=== PATIENT | male | born 1980 | race African-American/Black ===

== ENCOUNTER 2017-06-15 00:25 | Observation (INO) | payer BC, OTHER ==
[2017-06-15 00:52] LABS: #Basophils 0.1 thou/uL (0.0-0.2); #Eosinphils 0.1 thou/uL (0.0-0.7); #Monocytes 0.4 thou/uL (0.11-0.59); #Neutrophils 4.3 thou/uL (1.40-6.50); %Basophils 0.8 % (0.0-1.0); %Lymphocytes 38.1 % (21.0-51.0); %Monocytes 5.5 % (0.0-10.0); %Neutrophils 54.6 % (42.0-75.0); Hemoglobin 15.2 g/dL (14.0-18.0); Mean Corpuscular Hemoglobin 31.6 pg (27.0-31.0); Mean Corpuscular Volume 92.8 fl (80.0-94.0); Mean Platelet Volume 10.1 fL (7.4-10.4); Platelet Count 165 thou/uL (130-400); RBC Distribution Width 11.3 % (11.5-14.5); Red Blood Cell (RBC) Count 4.81 mill/uL (4.70-6.10); White Blood Cell (WBC) Count 7.9 thou/uL (4.8-10.8)
[2017-06-15 01:13] LABS: ALT (SGPT) 19 U/L (8-55); AST (SGOT) 15 U/L (5-34); Albumin 4.3 g/dL (3.5-5.0); Alkaline Phosphatase 58 U/L (40-150); Anion Gap 14 mmol/L (10-20); BUN (Urea Nitrogen) 12 mg/dL (8.9-20.6); Bilirubin, Total 0.5 mg/dL (0.2-1.2); CK (CPK) 162 U/L (30-200); Calc. Creatinine Clearance 0 mL/min (70-130); Calcium 10.1 mg/dL (7.8-10.44); Carbon Dioxide 22 mmol/L (22-29); Chloride 103 mmol/L (98-107); Estimated GFR-MDRD Greater than 90; Globulin 2.7 g/dL (2.4-3.5); Glucose 113 mg/dL (70-105); Potassium 3.9 mmol/L (3.5-5.1); Sodium 135 mmol/L (136-145)
[2017-06-15 01:18] LABS: Troponin I Less than 0.010 ng/mL (< 0.028)
[2017-06-15] MEDS ORDERED: Nitroglycerin 0.4 MG TAB (25 Tab Bottle) ONE (03:43)
[2017-06-15] MEDS ORDERED: Acetaminophen 325 MG TAB PO PRN (03:56)
--- NOTE | 2017-06-15 04:30 | HP ---
CHIEF COMPLAINT: Chest pain. HISTORY OF PRESENT ILLNESS: Patient is a 37-year-old male who started having chest pain this morning while sitting in [employer]azid[employer]. Patient states that the pain was substernal and pressure-like without any radiation or any other symptoms. Patient states that he has never had this before. It improved; how ever, it returned again this evening, which prompted him to go to the emergency room. He denied any family history of any cardiac issues. PAST MEDICAL HISTORY: Significant for hypertension. PAST SURGICAL HISTORY: Left knee surgery. SOCIAL HISTORY: Patient does smoke half a pack a day. No alcohol use. REVIEW OF SYSTEMS: Please see HPI. Rest of 14-point review of system is negative. FAMILY HISTORY: Reviewed and negative and noncontributory. LABORATORY DATA: CBC: White count 7.9, H&H 15 and 44 with a platelet of 165. Sodium 135, potassium 3.9, chloride 103, bicarb 22, BUN 12, creatinine 0.9. Troponin I was less than 0.01. PHYSICAL EXAMINATION: VITAL SIGNS: Blood pressure 178/91, pulse 83, respirations 18. Patient satting 99% on room air, T-m ax was 98.5. GENERAL: Patient is awake, alert, and oriented x3. Patient is morbidly obese with a weight of 228 k ilograms. He is in no acute distress. HEENT: Pupils are equal, round, react to light and accommodation. Extraocular muscles intact. TMs are clear. No erythema in throat. NECK: No JVD, no lymphadenopathy. CARDIOVASCULAR: Regular rate and rhythm. LUNGS: Clear to auscultation bilaterally and positive bowel sounds. ABDOMEN: Soft, nontender, nondistended. EXTREMITIES: No clubbing, cyanosis, or edema. NEUROLOGIC: Cranial nerves II-XII are grossly intact. PSYCHIATRIC: Patient is cooperative and appropriate, answering questions. ASSESSMENT AND PLAN: 1. Chest pain, rule out myocardial infarction. Continue with serial EKGs and enzymes. Continue on aspirin. 2. Hypertension. Restart lisinopril. We will go ahead and add low dose beta jason as well. CODE STATUS: Patient is FULL CODE.
[2017-06-15 04:42] LABS: Troponin I Less than 0.010 ng/mL (< 0.028)
[2017-06-15 04:43] VITALS: BMI 67.4
[2017-06-15 07:26] LABS: Troponin I 0.015 ng/mL (< 0.028)
--- NOTE | 2017-06-15 08:20 | RAD ---
CHEST 2 VIEWS: Date: 06/15/17 COMPARISON: 06/09/08. FINDINGS: Normal cardiac silhouette. Lungs and pleural spaces are clear. No pneumothorax or osseous abnormaliti es. IMPRESSION: No acute cardiopulmonary process. POS: [facility]
[2017-06-15] MEDS: Enoxaparin Sodium 40 MG/0.4 ML SYRINGE SC SCH (10:57)
[2017-06-15] MEDS: Metoprolol Tartrate 25 MG TAB PO SCH ×2 (10:57→21:17)
[2017-06-15] MEDS: Lisinopril 20 MG TAB PO SCH (10:57)
[2017-06-15] MEDS: Aspirin 325 MG TAB PO SCH (10:57)
--- NOTE | 2017-06-15 13:12 | PDOC.PN ---
- Subjective Encounter Start Date: 06/15/17 Encounter Start Time: 13:02 Subjective: vague chest discomfort - Objective Resuscitation Status: Resuscitation Status FULL:Full Resuscitation MAR Reviewed: Yes Vital Signs & Weight: Vital Signs (12 hours) Temp Pulse Resp BP Pulse Ox 06/15/17 11:09 98.9 F 75 18 145/83 H 97 06/15/17 08:00 98.2 F 64 18 06/15/17 07:24 98.2 F 64 18 139/91 H 98 06/15/17 04:30 97.9 F 69 20 06/15/17 04:25 97.9 F 69 20 168/92 H 98 Weight Weight 470 lb 1.6 oz I&O: 06/14/17 06/15/17 06/16/17 06:59 06:59 06:59 Intake Total 240 Output Total 500 Balance 240 -500 Result Diagrams: 06/15/17 00:41 06/15/17 00:41 Phys Exam - Physical Examination Constitutional: NAD Neck: no JVD Respiratory: clear to auscultation bilateral Cardiovascular: RRR, no significant murmur Gastrointestinal: soft, positive bowel sounds Musculoskeletal: no edema Dx/Plan (1) Chest pain Code(s): R07.9 - CHEST PAIN, UNSPECIFIED Status: Acute (2) HTN (hypertension) Code(s): I10 - ESSENTIAL (PRIMARY) HYPERTENSION Status: Acute - Plan stress test * .
--- NOTE | 2017-06-15 14:38 | DIS ---
DATE OF ADMISSION: 06/15/2017 DATE OF DISCHARGE: 06/15/2017 PRIMARY CARE PHYSICIAN: Sebastian call admission. DISCHARGE DISPOSITION: Discharged home. FINAL DIAGNOSES: Chest pain, unknown etiology; hypertension. DISCHARGE MEDICATIONS: Metoprolol 12.5 mg p.o. b.i.d., aspirin 325 a day, Protonix 40 mg a day, alireza nopril 20 mg a day, Meloxicam 15 mg a day. ALLERGIES: None. PENDING AT THE TIME OF DISCHARGE: Nothing. CODE STATUS: FULL. HOSPITAL COURSE: The patient admitted to [facility] Hospitalist [facility] through [facility] for chest pain, substernal, pressure-like, no radiation, no associated sympt oms, no family history of heart disease. Patient's cardiac enzymes were normal. His EKG showed no S T-T abnormality. Unfortunately, the patient weighs 470 pounds and is unable to have any diagnostic s tudies due to weight limitations. I have explained this to him in detail. I have explained that wha t I can do for him is add aspirin every day, add lisinopril for his high blood pressure, add Protonix for possible gastroesophageal reflux disease, and discharge him home. Follow up with his PCP, aleksandr gu weight loss. Once he has lost sufficient weight, we can do a stress test. We have discussed amber mariscal surgery and discussed him using what is available either online or through the phone book to rula santoro a bariatric surgeon to see if he qualifies for that.
[2017-06-16 04:48] VITALS: TEMP 98.4
--- NOTE | 2017-06-16 07:12 | CON ---
DATE OF CONSULTATION: 06/15/2017 HISTORY: Piyush Mclaughlin is a pleasant 37-year-old black male who was admitted for evaluation of chest discomfort. He denies any previous episodes of chest pain, but yesterday while at [employer] sitting at his piano had 2-3 minutes of substernal chest burning. This did not radiate. There was no nausea , vomiting, diaphoresis or shortness of breath associated with it. Then later on today in the evening while sitting, he again had the same type of discomfort lasted several minutes, came to the emergency room. He states sublingual nitroglycerin in the emergency room seemed to help his discomfort. He denies ever having any exertional chest pain. He will become short of breath after walking 100 feet. PAST MEDICAL HISTORY: Hypertension, obesity. He states he has had a sleep study and has been diagnosed as having obstructive sleep apnea, but is not on CPAP. No history of diabetes or hypercholesterolemia. MEDICATIONS AT HOME: Include lisinopril 20 mg daily. ALLERGIES: None. OPERATIONS: Left knee surgery. SOCIAL HISTORY: Smokes one half pack per day. He rarely drinks. 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 FAMILY HISTORY: Negative for coronary artery disease. REVIEW OF SYSTEMS: A 12-point review of systems is unremarkable. PHYSICAL EXAMINATION: VITAL SIGNS: 147/80, pulse 76. HEENT: PERRL. NECK: Supple. CHEST: Clear. CARDIAC: S1 and S2 are normal, without any S3, S4 or murmurs. ABDOMEN: Obese, normal bowel sounds, no tenderness or organomegaly. EXTREMITIES: Revealed no clubbing, cyanosis or edema. NEUROLOGIC: Grossly intact. SKIN: Warm and dry. LABORATORY DATA: EKG revealed normal sinus rhythm with poor R-wave progression. CBC is unremarkable. Sodium 135, potassium 3.9, chloride 103, carbon dioxide 22, BUN 12, creatinine 0.96. Cardiac enzymes x3 are normal. IMPRESSION: 1. Atypical chest discomfort, which historically sounds more gastrointestinal in nature. He has never had any exertional chest discomfort. 2. Hypertension with some elevated blood pressures here. 3. Smoker. 4. Morbid obesity. 5. Obstructive sleep apnea, untreated. RECOMMENDATIONS: I agree with the addition of metoprolol and proton pump inhibitor. I discussed with Mr. Mclaughlin that his weight of 470 pounds makes nuclear stress testing impossible with most tables rated at 400 to 450 pounds. We discussed attempting to try to lose 20 pounds and consider nuclear scanning. We also discussed obtaining liquid Maalox or Mylanta to use whenever he has discomfort and also consideration should be given to same nitroglycerin to use it if the Maalox does not help. He is also encouraged to have a repeat sleep study and to get CPAP. Also, fasting lipid profile will be performed. I can followup with him in 6 to 8 weeks to see if he has lost the necessary weight to proceed with nuclear stress test. KENDAL
[2017-06-16] MEDS: Enoxaparin Sodium 40 MG/0.4 ML SYRINGE SC SCH (08:12)
[2017-06-16] MEDS: Aspirin 325 MG TAB PO SCH (08:12)
[2017-06-16] MEDS: Metoprolol Tartrate 25 MG TAB PO SCH (08:12)
[2017-06-16] MEDS: Lisinopril 20 MG TAB PO SCH (08:12)
--- NOTE | 2017-06-16 08:49 | ADD-DIS ---
ADDENDUM Mr. Mclaughlin was anxious and declined to leave after being discharged yesterday. I discussed his case with Dr. Tl Juárez who reviewed it and ordered cholesterol levels. Cholesterol 120, triglycer ides 76, LDL 75, HDL 30. This was reviewed with the patient. He is currently satisfied and being di scharged home on the medicines, etc., from yesterday.
[2017-06-16 10:06] VITALS: BP 142/97
--- NOTE | 2017-06-20 17:46 | EKG ---
Test Reason : Blood Pressure : / mmHG Vent. Rate : 095 BPM Atrial Rate : 095 BPM P-R Int : 178 ms QRS Dur : 104 ms QT Int : 358 ms P-R-T Axes : 050 017 041 degrees QTc Int : 449 ms Normal sinus rhythm Cannot rule out Anterior infarct , age undetermined Abnormal ECG Confirmed by ELIZABETH FLOREZ, DIAMOND ([id number]), offline editor CASSANDRA WHITAKER ([id number]) on 06/20/2017 5:46:08 PM Referred By: YARY Confirmed By:DIAMOND JOHNSON MD
== END 2017-06-16 10:19 | disposition home or self-care (01) ==
LOC: ERS 00:25 → 2SW 03:02
PROVIDERS: ADMIT Hospitalist; ATTEND Hospitalist
DX: R07.89 Other chest pain (principal); I10 Essential (primary) hypertension; F17.210 Nicotine dependence, cigarettes, uncomplicated; G47.33 Obstructive sleep apnea (adult) (pediatric); E66.01 Morbid (severe) obesity due to excess calories; Z68.44 Body mass index [BMI] 60.0-69.9, adult; Z79.899 Other long term (current) drug therapy; Z98.890 Other specified postprocedural states
CPT/HCPCS: 36415; 71046; 80053; 80061; 82550; 82553; 83880; 84484; 85025; 93005; 94760; 96372; 99406; G0378; J1650

== ENCOUNTER 2018-08-06 19:30 | Outpatient (CLI) | payer BC | END 2018-08-06 19:31 | disposition home or self-care (01) | LOC: SLEEPLAB 19:30 | PROVIDERS: ATTEND Internal Medicine Critical Care Medicine | DX: G47.33 Obstructive sleep apnea (adult) (pediatric) (principal); R53.83 Other fatigue; R06.83 Snoring; G47.10 Hypersomnia, unspecified; I10 Essential (primary) hypertension; G47.00 Insomnia, unspecified | CPT/HCPCS: 95811 ==